=== PATIENT | male | born 1950 | race Caucasian/White ===

== ENCOUNTER 2022-04-05 13:44 | Outpatient (CLI) | payer OTHER, SELFPAY | END 2022-04-05 13:45 | disposition home or self-care (01) | LOC: AMB 04-13 09:37 | PROVIDERS: PCP Surgery; Visit Provider Family Medicine | DX: R10.9 Unspecified abdominal pain (principal) | CPT/HCPCS: A0425; A0427 ==

== ENCOUNTER 2022-04-05 14:18 | Emergency (ER) | payer MEDICARE, SELFPAY ==
[2022-04-05] VITALS (34 sets, daily range): BP systolic 89–140; BP diastolic 45–100; PULSE 60–90; TEMP 36; O2SAT 90–98
--- NOTE | 2022-04-05 14:29 | ED_ITS ---
HPI - General Adult General Time Seen by Provider: 14:30 Date Seen: 04/05/22 Chief complaint: Cardiac Arrest/CPR Stated complaint: Cardiac Time Seen by Provider: 04/05/22 14:28 Source: patient, EMS, RN notes reviewed and old records reviewed Mode of arrival: EMS Limitations: no limitations History of Present Illness HPI narrative: Gilmar is a very pleasant 72-year-old gentleman with a history of hyperlipidemia, hypertension, atrial fibrillation and valve replacement who comes to the emergency room for evaluation after V-tach arrest with cardioversion. Patient had stated to nursing staff here that he was not feeling well last night. This morning that feeling persisted and he decided to walk down to the ER and station at [facility] where he resides. This is an assisted living facility in [place]. He was noted to be pale sweaty and became altered and more unresponsive. 911 was called and upon EMS arrival he was noted to be in a persistent ventricular tachycardia at 200. He was shocked with 100 joules and converted. He immediately was able to talk. He tells me that he did have some nausea and stomach pain this morning but denied any chest pain. He states it was maybe a little hard to breathe but he does not endorse any specific shortness of breath. He denies any cough cold or congestion. Currently he is feeling better but is quite shaky in the emergency room. He takes amlodipine, aspirin daily, atorvastatin, escitalopram, lisinopril, metoprolol and quite type pain. He has been well lately and has not had any illness or fever. Related Data Home Medications Medication Instructions Recorded Confirmed amlodipine 10 mg tablet 10 mg PO DAILY 04/05/22 04/05/22 aspirin 81 mg tablet,delayed 81 mg PO DAILY 04/05/22 04/05/22 release atorvastatin 20 mg tablet 20 mg PO DAILY 04/05/22 04/05/22 escitalopram oxalate 10 mg tablet 10 mg PO DAILY 04/05/22 04/05/22 ibuprofen 200 mg capsule 200 mg PO Q4-6H PRN 04/05/22 04/05/22 lisinopril 10 mg tablet 10 mg PO DAILY 04/05/22 04/05/22 metoprolol succinate 25 mg 25 mg PO DAILY 04/05/22 04/05/22 tablet,extended release 24 hr quetiapine 25 mg tablet 25 mg PO DAILY 04/05/22 04/05/22 Allergies Allergy/AdvReac Type Severity Reaction Status Date / Time No Known Drug Allergies Allergy Verified 04/05/22 14:36 Review of Systems Status of ROS: Reports: 10 or more systems reviewed and unremarkable except as noted in History and below Const: Denies: fever or chills Eyes: Denies: change in vision ENMT: Denies: throat pain or difficulty swallowing Cardio: Reports: shortness of breath with exertion ( Mild and transient); Denies: chest pain, palpitations, swelling of feet/ankles or lightheadedness Resp: Reports: shortness of breath ( Mild and transient); Denies: cough GI: Reports: abdominal pain ( earlier today but now resolved) and nausea ( earlier today but now resolved); Denies: vomiting, diarrhea or difficulty swallowing : Denies: painful urination Neuro: Denies: headache or weakness in extremities PFSH PFSH Social History Smoking Status: Smoker, status unknown Do you use any of these nicotine containing products: Vaping Products Non-prescribed substance use: denies use Exam Narrative: Exam Narrative: patient is alert and oriented. Mentating normally. Makes good eye contact. Face is symmetrical. Neck is supple. No lymphadenopathy. Heart is with a regular rate and rhythm. Lungs are clear. Abdomen soft nontender. No pulsating mass. Lower extremities without edema. Pedal pulses are intact and symmetrical. Const: Vital Signs, click to edit/add: Vital Signs - 24 hr 04/05/22 14:33 04/05/22 14:35 04/05/22 14:34 Temperature 96.8 F L Pulse Rate 90 Pulse Rate [Right] 90 Blood Pressure 130/89 Blood Pressure [Le ft Upper Arm] 130/89 Pulse Oximetry 96 95 96 Oxygen Delivery Me thod Room Air Oxygen Flow Rate 04/05/22 14:35 04/05/22 14:45 04/05/22 14:47 Temperature Pulse Rate 89 86 83 Pulse Rate [Right] Blood Pressure 91/61 Blood Pressure [Le ft Upper Arm] Pulse Oximetry 96 94 94 Oxygen Delivery Me thod Oxygen Flow Rate 04/05/22 15:00 04/05/22 15:02 04/05/22 15:15 Temperature Pulse Rate 82 81 80 Pulse Rate [Right] Blood Pressure 94/45 L Blood Pressure [Le ft Upper Arm] Pulse Oximetry 94 93 93 Oxygen Delivery Me thod Oxygen Flow Rate 04/05/22 15:16 04/05/22 15:30 04/05/22 15:32 Temperature Pulse Rate 80 70 73 Pulse Rate [Right] Blood Pressure 107/58 L 89/51 L Blood Pressure [Le ft Upper Arm] Pulse Oximetry 92 91 92 Oxygen Delivery Me thod Oxygen Flow Rate 04/05/22 15:45 04/05/22 15:46 04/05/22 15:47 Temperature Pulse Rate 69 69 69 Pulse Rate [Right] Blood Pressure 96/84 Blood Pressure [Le ft Upper Arm] Pulse Oximetry 95 97 96 Oxygen Delivery Me thod Oxygen Flow Rate 04/05/22 16:00 04/05/22 16:03 04/05/22 16:15 Temperature Pulse Rate 73 75 72 Pulse Rate [Right] Blood Pressure 113/68 Blood Pressure [Le ft Upper Arm] Pulse Oximetry 97 96 97 Oxygen Delivery Me thod Oxygen Flow Rate 04/05/22 16:16 04/05/22 16:30 04/05/22 16:35 Temperature Pulse Rate 75 60 73 Pulse Rate [Right] Blood Pressure 106/73 Blood Pressure [Le ft Upper Arm] Pulse Oximetry 95 96 96 Oxygen Delivery Me thod Oxygen Flow Rate 04/05/22 16:45 04/05/22 16:46 04/05/22 16:47 Temperature Pulse Rate 69 70 71 Pulse Rate [Right] Blood Pressure 116/66 Blood Pressure [Le ft Upper Arm] Pulse Oximetry 97 96 97 Oxygen Delivery Me thod Oxygen Flow Rate 04/05/22 17:00 04/05/22 17:02 04/05/22 17:15 Temperature Pulse Rate 82 70 69 Pulse Rate [Right] Blood Pressure 114/70 Blood Pressure [Le ft Upper Arm] Pulse Oximetry 98 96 97 Oxygen Delivery Me thod Oxygen Flow Rate 04/05/22 17:16 04/05/22 17:30 04/05/22 17:31 Temperature Pulse Rate 71 77 77 Pulse Rate [Right] Blood Pressure 140/100 H 113/74 Blood Pressure [Le ft Upper Arm] Pulse Oximetry 96 97 96 Oxygen Delivery Me thod Oxygen Flow Rate 04/05/22 17:45 04/05/22 17:47 04/05/22 18:00 Temperature Pulse Rate 71 66 68 Pulse Rate [Right] Blood Pressure 107/64 Blood Pressure [Le ft Upper Arm] Pulse Oximetry 96 96 96 Oxygen Delivery Me thod Oxygen Flow Rate 04/05/22 18:02 04/05/22 16:22 04/05/22 17:00 Temperature Pulse Rate 68 Pulse Rate [Right] Blood Pressure 104/77 Blood Pressure [Le ft Upper Arm] Pulse Oximetry 96 90 96 Oxygen Delivery Me thod Room Air Nasal Cannula Oxygen Flow Rate 2 Course Course Hospital Course: I am able to view the monitor strip from EMS which shows sustained ventricular tachycardia at approximately 200. Patient noted to immediately cardiovert at [address] depression noted in subsequent strip that has now resolved. At this time patient is stable. Will give patient aspirin 324 p.o.. Chest x-ray, EKG, troponin, CBC, comprehensive panel currently ordered. Reevaluation(s) Reevaluation #1: patient has initial negative troponin. He is requesting lemonade but I have asked him to hold off until I have a 2nd negative troponin. Consultations Consultation #1: I had the pleasure of speaking with [facility] as well intense of this. At this time patient is accepted into the ICU at [facility] but will be on a waiting list. In the meantime will keep him in the emergency room, have pacer plans remaining. Will repeat troponin and EKG. Consultation #2: Dr. Johansen, supervisor cabinetmaker from [facility] does call me back. I they are going to make this patient a tele bed given the fact that he is stable. I did inform him the patient's EKG is showing some irritability with occasional PAC and rare PVC. Magnesium pending. Vital Signs Vital signs: Initial Vital Signs Temperature 96.8 F L 04/05/22 14:33 Temperature Source Axillary 04/05/22 14:33 Pulse Rate 90 04/05/22 14:33 Blood Pressure 130/89 04/05/22 14:33 Blood Pressure Mean 102 04/05/22 14:33 Blood Pressure Position Supine 04/05/22 14:33 Pulse Oximetry 96 04/05/22 14:33 Oxygen Delivery Method 04/05/22 14:33 Vital Signs Temperature 96.8 F L 04/05/22 14:33 Pulse Rate 90 04/05/22 14:33 Blood Pressure 130/89 04/05/22 14:33 Pulse Oximetry 96 04/05/22 14:33 Oxygen Delivery Method 04/05/22 14:33 Temperature 96.8 F L 04/05/22 14:33 Pulse Rate 68 04/05/22 18:02 Blood Pressure 104/77 04/05/22 18:02 Pulse Oximetry 96 04/05/22 18:02 Oxygen Delivery Method 04/05/22 17:00 Oxygen Flow Rate 2 04/05/22 17:00 Medical Decision Making MDM Narrative Medical decision making narrative: 1. Ventricular tachycardia arrest -successful cardioversion by EMS. Patient is now alert and oriented. He is in sinus rhythm once again. He did receive aspirin 325 p.o.. Initial troponin 0.0. It 2nd troponin 0.06 in the did per minute range. Plan is to monitor here until a bed is available at [facility]. For recurrent ventricular tachycardia will initiate amiodarone. For right now patient is stable. 2. Chronic renal insufficiency -creatinine today is 2.7. Was only able to find previous value of 2.1 in 2018. 3. History of valve replacement-unknown valve I do not have documentation in regards to this. Not currently on any anticoagulation. 4. Hypertension -controlled 5. Hyperglycemia- no documentation of diabetes. Given the fact that patient was given a shock I think this could explain some elevation of blood sugar but likely not to 344 today. 6. Leukocytosis- no evidence of pneumonia. This likely from demargination with the cardioversion. 7. Disposition-patient was graciously accepted by [facility] Dr. Ibarra. Patient will be going to the [facility] bed. Medical Records Medical records reviewed: Yes I reviewed the patient's medical records Lab Data Lab results reviewed: Yes I reviewed the patient's lab results Labs: Lab Results 04/05/22 04/05/22 04/05/22 Range/Units 14:40 14:40 14:40 WBC 18.69 H (4.50-11.00) K/uL RBC 5.11 (4.30-5.90) m/uL Hgb 14.8 (13.5-17.5) gm/dL Hct 46.5 (37.0-53.0) % MCV 91 (80-100) fL MCH 29 (26-34) pg MCHC 32 (32-36) gm/dL RDW Coeff of Edinson 14.4 (11.5-15.5) % Plt Count 266 (140-440) K/uL Neut % (Auto) 87.9 H (42.0-72.0) % Lymph % (Auto) 9.1 L (20-44) % [place] % (Auto) 2.0 (0.0-11.0) % Eos % (Auto) 0.1 (0.0-7.0) % Baso % (Auto) 0.1 (0.0-3.0) % Neut # (Auto) 16.40 H (1.7-7.0) K/uL Lymph # (Auto) 1.70 (0.90-2.90) K/uL [place] # (Auto) 0.40 (0.00-0.90) K/UL Eos # (Auto) 0.00 (0.00-0.50) K/uL Baso # (Auto) 0.00 (0.00-0.30) K/uL Abs Immat Gran (auto) 0.15 (0.00-0.30) K/uL Imm/Tot Granulo (auto) Not Reportable Sodium 145 (135-149) mmol/L Potassium 4.8 (3.6-5.1) mmol/L Chloride 108 (96-114) mmol/L Carbon Dioxide 12 L (20-32) mmol/L BUN 38 H (7-30) mg/dL Creatinine 2.7 H (0.5-1.5) mg/dL Estimated GFR 24 ml/min Glucose 344 H (60-115) mg/dL Calcium 9.6 (8.4-10.6) mg/dL Magnesium 2.5 (1.5-2.6) mg/dL Total Bilirubin 0.7 (0.1-1.5) mg/dL AST 32 (12-35) U/L ALT 100 H (4-50) U/L Alkaline Phosphatase 111 (40-150) U/L Troponin I (0.01-0.04) ng/mL Total Protein 8.2 (6.0-8.3) g/dL Albumin 4.8 (3.3-5.0) g/dL SARS-CoV-2 (PCR) (Negative) Influenza Type A (PCR) (Negative) Influenza Type B (PCR) (Negative) POC Troponin I 0.02 (0.01-0.04) ng/ml 04/05/22 04/05/22 Range/Units 14:40 16:38 WBC (4.50-11.00) K/uL RBC (4.30-5.90) m/uL Hgb (13.5-17.5) gm/dL Hct (37.0-53.0) % MCV (80-100) fL MCH (26-34) pg MCHC (32-36) gm/dL RDW Coeff of Edinson (11.5-15.5) % Plt Count (140-440) K/uL Neut % (Auto) (42.0-72.0) % Lymph % (Auto) (20-44) % [place] % (Auto) (0.0-11.0) % Eos % (Auto) (0.0-7.0) % Baso % (Auto) (0.0-3.0) % Neut # (Auto) (1.7-7.0) K/uL Lymph # (Auto) (0.90-2.90) K/uL [place] # (Auto) (0.00-0.90) K/UL Eos # (Auto) (0.00-0.50) K/uL Baso # (Auto) (0.00-0.30) K/uL Abs Immat Gran (auto) (0.00-0.30) K/uL Imm/Tot Granulo (auto) Sodium (135-149) mmol/L Potassium (3.6-5.1) mmol/L Chloride (96-114) mmol/L Carbon Dioxide (20-32) mmol/L BUN (7-30) mg/dL Creatinine (0.5-1.5) mg/dL Estimated GFR ml/min Glucose (60-115) mg/dL Calcium (8.4-10.6) mg/dL Magnesium (1.5-2.6) mg/dL Total Bilirubin (0.1-1.5) mg/dL AST (12-35) U/L ALT (4-50) U/L Alkaline Phosphatase (40-150) U/L Troponin I 0.06 H* (0.01-0.04) ng/mL Total Protein (6.0-8.3) g/dL Albumin (3.3-5.0) g/dL SARS-CoV-2 (PCR) Negative SARS-CoV-2 (Negative) Influenza Type A (PCR) Negative PCR FLU A (Negative) Influenza Type B (PCR) Negative PCR FLU B (Negative) POC Troponin I (0.01-0.04) ng/ml Imaging Data Chest x-ray: Attestation: I have reviewed the pertinent imaging results. My impression: Chronic lung markings. Wires in the sternum. I do not see a widened mediastinum. Radiologist's impression: Lungs: Clear lungs. No consolidation. Pleura: No pleural effusion or pneumothorax. Heart and Mediastinum: The cardiomediastinal silhouette is enlarged. The vessels are unremarkable. Bones: Unremarkable. IMPRESSION: No acute cardiopulmonary disease. ECG Data Attestation: I personally reviewed and interpreted this ECG as follows: Prior ECG tracings: available for review Interpretation: EKG by my read shows sinus rhythm at a rate of 93. Flattening of the T-waves noted in the anterior lateral leads. Second EKG by my read shows sinus rhythm. Patient does have rare PVC and now occasional PACs. No significant acute ST or T-wave changes. Discharge Plan Discharge Prescriptions: No Action quetiapine 25 mg tablet 25 mg PO DAILY atorvastatin 20 mg tablet 20 mg PO DAILY aspirin 81 mg tablet,delayed release (DR/EC) 81 mg PO DAILY amlodipine 10 mg tablet 10 mg PO DAILY lisinopril 10 mg tablet 10 mg PO DAILY metoprolol succinate 25 mg tablet extended release 24 hr 25 mg PO DAILY escitalopram oxalate 10 mg tablet 10 mg PO DAILY ibuprofen 200 mg capsule 200 mg PO Q4-6H PRN Rx Instructions: 200mg 1-2 tabs orally every 4-6 hours PRN; Follow Up/Referrals: Bam Robles MD [Primary Care Provider] -
[2022-04-05] MEDS: ASPIRIN 81 MG TAB.CHEW 324 MG PO (14:35)
--- NOTE | 2022-04-05 14:35 | CRLHL7_ITS ---
For Patients: As a result of the Cures Act, medical imaging exams and procedure reports are released immediately into your electronic medical record. You may view this report before your referring provider. If you have questions, please contact your health care provider. INDICATION: Ventricular tachycardia. TECHNIQUE: Chest 1 views. COMPARISON: None. FINDINGS: Lungs: Clear lungs. No consolidation. Pleura: No pleural effusion or pneumothorax. Heart and Mediastinum: The cardiomediastinal silhouette is enlarged. The vessels are unremarkable. Bones: Unremarkable. IMPRESSION: No acute cardiopulmonary disease. Dictated by Nagi Deluna MD @ 04/05/2022 3:28:49 PM (Electronically Signed)
[2022-04-05 15:02] LABS: Basophils Percent Auto 0.1 % (0.0-3.0); Eosinophils Percent Auto 0.1 % (0.0-7.0); Hematocrit 46.5 % (37.0-53.0); Hemoglobin* 14.8 gm/dL (13.5-17.5); Immature Granulocytes Abs Auto 0.15 K/uL (0.00-0.30); Lymphocytes Percent Auto 9.1 % (20-44); Mean Corpuscular HGB Conc 32 gm/dL (32-36); Mean Corpuscular Hemoglobin 29 pg (26-34); Mean Corpuscular Volume 91 fL (80-100); Neutrophils Percent Auto 87.9 % (42.0-72.0); Platelet Count* 266 K/uL (140-440); RDW Coefficient of Variation % 14.4 % (11.5-15.5); Red Blood Count 5.11 m/uL (4.30-5.90); White Blood Count* 18.69 K/uL (4.50-11.00)
[2022-04-05 15:03] LABS: Troponin, Point-of-Care* 0.02 ng/ml (0.01-0.04)
[2022-04-05 15:06] LABS: Slide Review Reflex No
[2022-04-05 15:07] LABS: Albumin* 4.8 g/dL (3.3-5.0); Chloride* 108 mmol/L (96-114); Sodium* 145 mmol/L (135-149)
[2022-04-05 15:08] LABS: Potassium* 4.8 mmol/L (3.6-5.1)
[2022-04-05 15:10] LABS: Alkaline Phosphatase* 111 U/L (40-150); Aspartate Amino Transferase* 32 U/L (12-35); Bilirubin Total* 0.7 mg/dL (0.1-1.5); Blood Urea Nitrogen* 38 mg/dL (7-30); Carbon Dioxide* 12 mmol/L (20-32); Creatinine* 2.7 mg/dL (0.5-1.5); Estimated Glomerular Filt Rate 24 ml/min; Glucose* 344 mg/dL (60-115); Total Protein* 8.2 g/dL (6.0-8.3)
[2022-04-05 15:11] LABS: Calcium* 9.6 mg/dL (8.4-10.6)
[2022-04-05 15:23] LABS: PCR FLU A Negative PCR FLU A (Negative); PCR FLU B Negative PCR FLU B (Negative)
[2022-04-05 15:24] LABS: SARS PCR* Negative SARS-CoV-2 (Negative)
[2022-04-05 15:44] LABS: Alanine Aminotransferase* 100 U/L (4-50)
[2022-04-05 17:02] LABS: Magnesium* 2.5 mg/dL (1.5-2.6)
--- NOTE | 2022-04-05 17:09 | ED.NURSE ---
Spoke with , Shanika and gave update on patient and helped patient to use phone.
[2022-04-05 17:39] LABS: Troponin I* 0.06 ng/mL (0.01-0.04)
--- NOTE | 2022-04-05 19:18 | ED.NURSE ---
RN to RN report given. Patient will transfer [facility] via ems. Sister was notified as well as Julito Rhodes.
== END 2022-04-05 19:25 | disposition short-term general hospital (02) ==
LOC: ED 15:00
PROVIDERS: Emergency Provider Family Medicine; PCP Surgery
DX: I46.9 Cardiac arrest, cause unspecified (principal); I48.91 Unspecified atrial fibrillation; R73.9 Hyperglycemia, unspecified; I12.9 Hypertensive chronic kidney disease with stage 1 through stage 4 chronic kidney disease, or unspecified chronic kidney disease; D72.829 Elevated white blood cell count, unspecified; N18.9 Chronic kidney disease, unspecified; E78.5 Hyperlipidemia, unspecified; F17.290 Nicotine dependence, other tobacco product, uncomplicated; Z95.2 Presence of prosthetic heart valve; Z79.899 Other long term (current) drug therapy; Z79.82 Long term (current) use of aspirin; Z20.822 Contact with and (suspected) exposure to COVID-19; I47.20 Ventricular tachycardia, unspecified
CPT/HCPCS: 36415; 71045; 80053; 83735; 84484; 85025; 87631; 93005; 94761; 99285; A9270

== ENCOUNTER 2022-04-05 19:09 | Outpatient (CLI) | payer OTHER, SELFPAY | END 2022-04-05 19:10 | disposition home or self-care (01) | LOC: AMB 04-26 10:57 | PROVIDERS: PCP Surgery; Visit Provider Family Medicine | DX: I49.9 Cardiac arrhythmia, unspecified (principal) | CPT/HCPCS: A0425; A0426 ==

== ENCOUNTER 2022-04-11 08:28 | Outpatient (CLI) | payer OTHER, SELFPAY | END 2022-04-11 08:29 | disposition home or self-care (01) | LOC: AMB 05-09 06:22 | PROVIDERS: PCP Surgery; Visit Provider Family Medicine | DX: I49.9 Cardiac arrhythmia, unspecified (principal) | CPT/HCPCS: A0425; A0427 ==

== ENCOUNTER 2022-04-11 08:54 | Emergency (ER) | payer OTHER, SELFPAY ==
[2022-04-11] VITALS (39 sets, daily range): BP systolic 93–158; BP diastolic 53–115; PULSE 62–168; RESP 14–20; TEMP 37; O2SAT 94–100; BMI 27.4
--- NOTE | 2022-04-11 08:58 | CRLHL7_ITS ---
For Patients: As a result of the Century Cures Act, medical imaging exams and procedure reports are released immediately into your electronic medical record. You may view this report before your referring provider. If you have questions, please contact your health care provider. INDICATION: Chest pain. TECHNIQUE: AP portable chest. COMPARISON: April 05, 2022. FINDINGS: New left-sided pacemaker/ICD with its lead tips in the right atrium and right ventricle. No definite pneumothorax. Sternotomy. Overall heart size is toward the upper limit of normal. Clear lungs. No evidence for congestive heart failure or active pneumonia. IMPRESSION: New left-sided pacemaker/ICD. No acute cardiopulmonary process identified. No pneumothorax. Dictated by Naveen Moreno MD @ 04/11/2022 9:57:50 AM (Electronically Signed)
--- NOTE | 2022-04-11 09:12 | ED.NURSE ---
Spoke with pt's sister Shanika . She is POA for pt. Provided with an update.
[2022-04-11 09:27] LABS: Basophils Percent Auto 0.2 % (0.0-3.0); Eosinophils Percent Auto 0.8 % (0.0-7.0); Hematocrit 38.3 % (37.0-53.0); Hemoglobin* 12.5 gm/dL (13.5-17.5); Immature Granulocytes Pct Auto 0.1 %; Lymphocytes Percent Auto 9.7 % (20-44); Mean Corpuscular HGB Conc 33 gm/dL (32-36); Mean Corpuscular Hemoglobin 29 pg (26-34); Mean Corpuscular Volume 89 fL (80-100); Monocytes Percent Auto 9.7 % (0.0-11.0); Neutrophils Percent Auto 79.5 % (42.0-72.0); Platelet Count* 169 K/uL (140-440); RDW Coefficient of Variation % 14.2 % (11.5-15.5); Red Blood Count 4.33 m/uL (4.30-5.90); White Blood Count* 14.94 K/uL (4.50-11.00)
[2022-04-11] MEDS: 0.9 % SODIUM CHLORIDE 1000 ml 1,000 ML IV (09:28)
[2022-04-11 09:29] LABS: Troponin, Point-of-Care* 0.02 ng/ml (0.01-0.04)
[2022-04-11 09:29] LABS: Slide Review Reflex No
[2022-04-11 09:38] LABS: Chloride* 111 mmol/L (96-114); Sodium* 141 mmol/L (135-149)
[2022-04-11 09:39] LABS: Potassium* 4.4 mmol/L (3.6-5.1)
[2022-04-11 09:41] LABS: Carbon Dioxide* 16 mmol/L (20-32); Creatinine* 1.5 mg/dL (0.5-1.5); Est. Creatinine Clearance* 41.62; Estimated Glomerular Filt Rate 49 ml/min
[2022-04-11 09:42] LABS: Blood Urea Nitrogen* 28 mg/dL (7-30); Calcium* 8.4 mg/dL (8.4-10.6); Glucose* 126 mg/dL (60-115); Magnesium* 2.2 mg/dL (1.5-2.6)
[2022-04-11 09:43] LABS: INR 1.09 (0.91-1.10); Prothrombin Time 14.8 Seconds
--- NOTE | 2022-04-11 09:43 | ED.NURSE ---
Spoke with pt's sister, Shanika again. Provided update about conscious sedation and cardioversion procedure to be done shortly.
[2022-04-11 09:44] LABS: Partial Thromboplastin Time* 31 Seconds (23-33)
[2022-04-11 09:46] LABS: D Dimer Quantitative* 3.32 ug/ml (0.00-0.50)
[2022-04-11 09:50] LABS: NT Pro B Type NatriureticPept* 7040 PG/mL (0-125)
--- NOTE | 2022-04-11 09:53 | ED.NURSE ---
Cardioversion done at 100J, pt converted rhythm, HR now 83. Pt tolerated procedure well.
--- NOTE | 2022-04-11 09:53 | W.ANESCHARGE ---
Anesthesia Charges Start Date/Time Anesthesia Start Date: 04/11/22 Anesthesia Start Time: 09:40 Stop Date/Time Anesthesia Stop Date: 04/11/22 Anesthesia Stop Time: 09:52 Summary Emergency: Yes Extremes of Age: Over 70-CPT 20816
--- NOTE | 2022-04-11 09:59 | ED_ITS ---
HPI - Arrhythmia/Palpitations General Date Seen: 04/11/22 Chief Complaint: Arrhythmia/Palpitations Stated Complaint: Heart issue Time Seen by Provider: 04/11/22 08:57 Source: patient, EMS and old records reviewed Mode of arrival: EMS Limitations: no limitations History of Present Illness HPI narrative: Is a 72-year-old gentleman who presents from [facility], at approximately 8:00 a.m. this morning he went to move his lazy Boy chair, got nauseous, felt diaphoretic, staff attended him, found his heart rate to be elevated, EMS was activated does he has a history of a recent pacemaker placement a week ago. He was brought to the emergency room, he is speaking normally to me, feels pretty good now, denies any chest pain shortness of breath or anything else, his rhythm on the monitor is 168 regular, wide-based, consistent with either ventricular tachycardia or left bundle-branch block with aberration. Recent pacemaker placement at [facility], medications are updated. Related Data Home Medications Medication Instructions Recorded Confirmed amlodipine 10 mg tablet 10 mg PO DAILY 04/05/22 04/05/22 aspirin 81 mg tablet,delayed 81 mg PO DAILY 04/05/22 04/05/22 release atorvastatin 20 mg tablet 20 mg PO DAILY 04/05/22 04/05/22 escitalopram oxalate 10 mg tablet 10 mg PO DAILY 04/05/22 04/05/22 ibuprofen 200 mg capsule 200 mg PO Q4-6H PRN 04/05/22 04/05/22 lisinopril 10 mg tablet 10 mg PO DAILY 04/05/22 04/05/22 metoprolol succinate 25 mg 25 mg PO DAILY 04/05/22 04/05/22 tablet,extended release 24 hr quetiapine 25 mg tablet 25 mg PO DAILY 04/05/22 04/05/22 Previous Rx's Medication Instructions Recorded sotalol 120 mg tablet 120 mg PO BID #60 tabs 04/11/22 Allergies Allergy/AdvReac Type Severity Reaction Status Date / Time No Known Drug Allergies Allergy Verified 04/05/22 14:36 Review of Systems Status of ROS: Reports: 10 or more systems reviewed and unremarkable except as noted in History and below PFSH PFSH Social History Smoking Status: Smoker, status unknown Do you use any of these nicotine containing products: Vaping Products How often do you have a drink containing alcohol: never AUDIT-C Alcohol total score: 0 Non-prescribed substance use: denies use Exam Narrative: Exam Narrative: He has attended to and roommate, he is alert oriented, no apparent distress, pupils equal round reactive to light, TMs and oropharynx are normal, neck is supple, JVP is flat, chest is good air entry year bilaterally with no wheezing crackles noted, easy respirations, he has patch on the left side of his chest consistent with a recent pacemaker placement, there is no redness around it suggesting cellulitis, or tenderness. Heart sounds show a regular rhythm, at approximately 160 beats per minute, no murmurs are noted. His abdomen is soft and obese there is no guarding no tenderness no organomegaly noted, bowel sounds are normal, extremities are all normally moves all extremities independently and well, with symmetrical power in his upper lower extremities and right verses left is normal. He appears to be in a wide-based rapid rate on the monitor. Const: Vital Signs, click to edit/add: Vital Signs - 24 hr 04/11/22 09:00 04/11/22 08:59 04/11/22 09:00 Temperature 98.6 F Pulse Rate 167 H 167 H Pulse Rate [Left F emoral] 168 H Respiratory Rate 18 Blood Pressure Blood Pressure [Le ft Upper Arm] 112/86 Pulse Oximetry 95 95 95 Oxygen Delivery Me thod Room Air 04/11/22 09:02 04/11/22 09:10 04/11/22 09:12 Temperature Pulse Rate 168 H 167 H 168 H Pulse Rate [Left F emoral] Respiratory Rate Blood Pressure 112/86 116/92 H Blood Pressure [Le ft Upper Arm] Pulse Oximetry 95 95 95 Oxygen Delivery Me thod 04/11/22 09:20 04/11/22 09:22 04/11/22 09:30 Temperature Pulse Rate 167 H 167 H 168 H Pulse Rate [Left F emoral] Respiratory Rate Blood Pressure 114/92 H Blood Pressure [Le ft Upper Arm] Pulse Oximetry 97 95 95 Oxygen Delivery Me thod 04/11/22 09:32 04/11/22 09:40 04/11/22 09:41 Temperature Pulse Rate 167 H 168 H 167 H Pulse Rate [Left F emoral] Respiratory Rate Blood Pressure 111/88 129/100 H Blood Pressure [Le ft Upper Arm] Pulse Oximetry 95 95 95 Oxygen Delivery Me thod 04/11/22 09:44 04/11/22 09:48 04/11/22 09:50 Temperature Pulse Rate 167 H 104 H 89 Pulse Rate [Left F emoral] Respiratory Rate 20 17 Blood Pressure 132/85 93/53 L Blood Pressure [Le ft Upper Arm] Pulse Oximetry 94 98 99 Oxygen Delivery Me thod 04/11/22 09:51 04/11/22 09:52 04/11/22 09:57 Temperature Pulse Rate 94 89 82 Pulse Rate [Left F emoral] Respiratory Rate 18 18 17 Blood Pressure 95/55 L 120/67 Blood Pressure [Le ft Upper Arm] Pulse Oximetry 99 99 99 Oxygen Delivery Me thod 04/11/22 09:58 04/11/22 10:00 04/11/22 10:02 Temperature Pulse Rate 85 84 83 Pulse Rate [Left F emoral] Respiratory Rate 17 16 16 Blood Pressure 132/76 Blood Pressure [Le ft Upper Arm] Pulse Oximetry 100 100 100 Oxygen Delivery Me thod 04/11/22 10:07 04/11/22 10:10 04/11/22 10:16 Temperature Pulse Rate 79 83 88 Pulse Rate [Left F emoral] Respiratory Rate 18 20 20 Blood Pressure 134/80 152/115 H Blood Pressure [Le ft Upper Arm] Pulse Oximetry 100 100 99 Oxygen Delivery Me thod 04/11/22 10:30 04/11/22 10:36 04/11/22 10:37 Temperature Pulse Rate 86 84 87 Pulse Rate [Left F emoral] Respiratory Rate 17 17 16 Blood Pressure 139/77 Blood Pressure [Le ft Upper Arm] Pulse Oximetry 99 99 99 Oxygen Delivery Me thod 04/11/22 10:40 04/11/22 10:50 04/11/22 11:00 Temperature Pulse Rate 89 82 78 Pulse Rate [Left F emoral] Respiratory Rate 20 16 15 Blood Pressure Blood Pressure [Le ft Upper Arm] Pulse Oximetry 99 99 99 Oxygen Delivery Me thod 04/11/22 11:02 04/11/22 11:10 04/11/22 11:20 Temperature Pulse Rate 78 75 70 Pulse Rate [Left F emoral] Respiratory Rate 15 16 14 Blood Pressure 134/79 Blood Pressure [Le ft Upper Arm] Pulse Oximetry 99 99 99 Oxygen Delivery Me thod 04/11/22 11:33 04/11/22 11:35 04/11/22 11:40 Temperature Pulse Rate 83 70 69 Pulse Rate [Left F emoral] Respiratory Rate Blood Pressure 158/83 H Blood Pressure [Le ft Upper Arm] Pulse Oximetry 95 96 96 Oxygen Delivery Me thod 04/11/22 11:50 04/11/22 12:00 04/11/22 12:02 Temperature Pulse Rate 64 64 63 Pulse Rate [Left F emoral] Respiratory Rate Blood Pressure 137/72 Blood Pressure [Le ft Upper Arm] Pulse Oximetry 95 96 95 Oxygen Delivery Me thod 04/11/22 12:10 Temperature Pulse Rate 62 Pulse Rate [Left F emoral] Respiratory Rate Blood Pressure Blood Pressure [Le ft Upper Arm] Pulse Oximetry 95 Oxygen Delivery Me thod Documenting provider has reviewed patient's vital signs: yes Course Course Hospital Course: I spoke to [facility] Dr. Uday Lozano, he reviewed the EKG also, agreed with me that this is either ventricular tachycardia or possibly left bundle-branch block with aberration your regards it is currently stable, but would recommend electricity, defibrillation. He also after consulting with his rhythm colleagues, they suggested sotalol 120 mg p.o. b.i.d., and for him to be seen by [facility] on Sunday. They will change his defibrillator which is currently set at 180, I discussed this with the patient, he is agreeable to cardioversion, along with sedation, he is vehemently no intubation, and no excessive/CPR if he would needed. I agreed to him that I would not do this, other than maybe a little bit of oral bagging if he needs oxygen. Discussion of the risks benefits and side effects of the diff fibrillation including injury are discussed in detail with the patient he accepts these would like to proceed. Anesthesia was in attendance, for airway support. We used propofol, and 100 joules this resulted in good cardioversion, he is now in narrow complex heart rhythm at 90 beats per minute, with occasional multifocal PVCs. Per cardiology's guidelines he will be watch for a couple hours, if he does well he can be discharged at that point. Reevaluation(s) Reevaluation #1: Patient has done well he remained in narrow complex rhythm, with a rate of 62, there is no further need for intervention, we were able to set him up with the medication, and [facility] will contact him with follow-up. He will return if ongoing signs and symptoms. Time: 12:47 Vital Signs Vital signs: Initial Vital Signs Pulse Rate 167 H 04/11/22 08:59 Pulse Oximetry 95 04/11/22 08:59 Vital Signs Pulse Rate 167 H 04/11/22 08:59 Pulse Oximetry 95 04/11/22 08:59 Temperature 98.6 F 04/11/22 09:00 Pulse Rate 62 04/11/22 12:10 Respiratory Rate 14 04/11/22 11:20 Blood Pressure 137/72 04/11/22 12:02 Pulse Oximetry 95 04/11/22 12:10 Oxygen Delivery Method 04/11/22 09:00 MDM - Arrhythmia/Palpitations MDM Narrative Medical decision making narrative: Differential diagnosis includes but is not limited to psychosocial stress, thyroid abnormalities, CHF, SVT, atrial fibrillation, ventricular tachycardia and ventricular fibrillation. This includes the life-threatening complications of heart failure, V-tach, and VFib Medical Records Attestation: I reviewed the patient's medical records. Lab Data Attestation: I reviewed the patient's lab results. Labs: Lab Results 04/11/22 04/11/22 04/11/22 Range/Units 08:58 08:58 09:12 WBC 14.94 H (4.50-11.00) K/uL RBC 4.33 (4.30-5.90) m/uL Hgb 12.5 L (13.5-17.5) gm/dL Hct 38.3 (37.0-53.0) % MCV 89 (80-100) fL MCH 29 (26-34) pg MCHC 33 (32-36) gm/dL RDW Coeff of Edinson 14.2 (11.5-15.5) % Plt Count 169 (140-440) K/uL Neut % (Auto) 79.5 H (42.0-72.0) % Lymph % (Auto) 9.7 L (20-44) % [place] % (Auto) 9.7 (0.0-11.0) % Eos % (Auto) 0.8 (0.0-7.0) % Baso % (Auto) 0.2 (0.0-3.0) % Neut # (Auto) 11.90 H (1.7-7.0) K/uL Lymph # (Auto) 1.40 (0.90-2.90) K/uL [place] # (Auto) 1.40 H (0.00-0.90) K/UL Eos # (Auto) 0.10 (0.00-0.50) K/uL Baso # (Auto) 0.00 (0.00-0.30) K/uL Abs Immat Gran (auto) 0.00 (0.00-0.30) K/uL Imm/Tot Granulo (auto) 0.1 % INR (0.91-1.10) APTT (23-33) Seconds D-Dimer Quant (PE/DVT) (0.00-0.50) ug/ml Sodium (135-149) mmol/L Potassium (3.6-5.1) mmol/L Chloride (96-114) mmol/L Carbon Dioxide (20-32) mmol/L BUN (7-30) mg/dL Creatinine (0.5-1.5) mg/dL Estimated Creat Clear Estimated GFR ml/min Glucose (60-115) mg/dL Calcium (8.4-10.6) mg/dL Magnesium (1.5-2.6) mg/dL NT-Pro-B Natriuret Pep (0-125) PG/mL SARS-CoV-2 (PCR) Negative SARS-CoV-2 (Negative) Influenza Type A (PCR) Negative PCR FLU A (Negative) Influenza Type B (PCR) Negative PCR FLU B (Negative) RSV (PCR) Negative PCR RSV (Negative) POC Troponin I 0.02 (0.01-0.04) ng/ml 04/11/22 04/11/22 Range/Units 09:12 09:12 WBC (4.50-11.00) K/uL RBC (4.30-5.90) m/uL Hgb (13.5-17.5) gm/dL Hct (37.0-53.0) % MCV (80-100) fL MCH (26-34) pg MCHC (32-36) gm/dL RDW Coeff of Edinson (11.5-15.5) % Plt Count (140-440) K/uL Neut % (Auto) (42.0-72.0) % Lymph % (Auto) (20-44) % [place] % (Auto) (0.0-11.0) % Eos % (Auto) (0.0-7.0) % Baso % (Auto) (0.0-3.0) % Neut # (Auto) (1.7-7.0) K/uL Lymph # (Auto) (0.90-2.90) K/uL [place] # (Auto) (0.00-0.90) K/UL Eos # (Auto) (0.00-0.50) K/uL Baso # (Auto) (0.00-0.30) K/uL Abs Immat Gran (auto) (0.00-0.30) K/uL Imm/Tot Granulo (auto) % INR 1.09 (0.91-1.10) APTT 31 (23-33) Seconds D-Dimer Quant (PE/DVT) 3.32 H (0.00-0.50) ug/ml Sodium 141 (135-149) mmol/L Potassium 4.4 (3.6-5.1) mmol/L Chloride 111 (96-114) mmol/L Carbon Dioxide 16 L (20-32) mmol/L BUN 28 (7-30) mg/dL Creatinine 1.5 (0.5-1.5) mg/dL Estimated Creat Clear 41.62 Estimated GFR 49 ml/min Glucose 126 H (60-115) mg/dL Calcium 8.4 (8.4-10.6) mg/dL Magnesium 2.2 (1.5-2.6) mg/dL NT-Pro-B Natriuret Pep 7040 H (0-125) PG/mL SARS-CoV-2 (PCR) (Negative) Influenza Type A (PCR) (Negative) Influenza Type B (PCR) (Negative) RSV (PCR) (Negative) POC Troponin I (0.01-0.04) ng/ml Imaging Data Chest x-ray: Attestation: I have reviewed the pertinent imaging results. My impression: Defibrillator placement, large cardiac silhouette, Radiologist's impression: Patient: Gilmar Porras MR#: [id number] : 1950 Acct:[id number] Loc: ED Service Date: 04/11/[address]: Ordering Physician: Merrick White M.D. Date of Service: 04/11/22 Procedure(s): XR chest 1V portable Accession Number(s): [id number] cc: Bam Robles M.D.; Merrick White M.D.~ For Patients:? As a result of the Cures Act, medical imaging exams and procedure reports are released immediately into your electronic medical record.? You may view this report before your referring provider.? If you have questions, please contact your health care provider. INDICATION: Chest pain. TECHNIQUE: AP portable chest. COMPARISON: April 05, 2022. FINDINGS: New left-sided pacemaker/ICD with its lead tips in the right atrium and right ventricle. No definite pneumothorax. Sternotomy. Overall heart size is toward the upper limit of normal. Clear lungs. No evidence for congestive heart failure or active pneumonia. IMPRESSION: New left-sided pacemaker/ICD. No acute cardiopulmonary process identified. No pneumothorax. Dictated by Naveen Moreno MD @ 04/11/2022 9:57:50 AM (Electronically Signed) ECG Data Attestation: I personally reviewed and interpreted this ECG as follows: ECG interpretation date: 04/11/22 Prior ECG tracings: available for review Interpretation: Wide QRS tachycardia, could be ventricular tachycardia, with the ventricular rate of 167, QRS is 130, QT 330, Pacemaker function: abnormal sensing function Discharge Plan Discharge Clinical Impression: Ventricular tachycardia Patient Disposition: Home, Self-Care Condition: Improved Instructions: Implantable Cardioverter Defibrillator (DC), Tachycardia (ED), Cardiac Ablation (DC), Electrophysiology Study (DC) Additional Instructions: As I discussed with Cardiology, we will send you home at this point on the new medication twice daily, they will contact you and schedule follow-up appointment for Sunday with the shank taper Dr. Lozano. Return here if ongoing signs and symptoms, or worsening condition. Just confirm that they can get the prescription so he can take tonight. Prescriptions: New sotalol 120 mg tablet 120 mg PO BID Qty: 60 2RF Rx Instructions: this is for Ventricular tachycardia No Action quetiapine 25 mg tablet 25 mg PO DAILY atorvastatin 20 mg tablet 20 mg PO DAILY aspirin 81 mg tablet,delayed release (DR/EC) 81 mg PO DAILY amlodipine 10 mg tablet 10 mg PO DAILY lisinopril 10 mg tablet 10 mg PO DAILY metoprolol succinate 25 mg tablet extended release 24 hr 25 mg PO DAILY escitalopram oxalate 10 mg tablet 10 mg PO DAILY ibuprofen 200 mg capsule 200 mg PO Q4-6H PRN Rx Instructions: 200mg 1-2 tabs orally every 4-6 hours PRN; Follow Up/Referrals: Bam Robles MD [Primary Care Provider] - Stand Alone Forms: FX Aligned Info Instructions
[2022-04-11] MEDS: SOTALOL HCL 120 MG TABLET PO (10:31)
[2022-04-11 10:40] LABS: PCR FLU A Negative PCR FLU A (Negative); PCR FLU B Negative PCR FLU B (Negative); PCR RSV Negative PCR RSV (Negative)
[2022-04-11 10:41] LABS: SARS PCR* Negative SARS-CoV-2 (Negative)
--- NOTE | 2022-04-11 11:44 | ED.NURSE ---
Pt up to bathroom. Ambulatory with assist. Tolerating well.
== END 2022-04-11 12:26 | disposition home or self-care (01) ==
PROVIDERS: Emergency Provider Family Medicine; PCP Surgery
DX: I47.20 Ventricular tachycardia, unspecified (principal)
CPT/HCPCS: 00410; 36415; 71045; 80048; 83735; 83880; 85025; 85379; 85610; 85730; 87502; 87634; 87635; 92960; 93005; 96360; 99100; 99140; 99285; 99291; A9270; J7030

== ENCOUNTER 2023-09-19 17:35 | Outpatient (CLI) | payer OTHER, SELFPAY | END 2023-09-19 17:36 | disposition home or self-care (01) | LOC: AMB 09-22 15:03 | PROVIDERS: PCP Surgery; Visit Provider Family Medicine | DX: R07.89 Other chest pain (principal) | CPT/HCPCS: A0425; A0427 ==

== ENCOUNTER 2023-09-19 17:58 | Observation (INO) | payer OTHER, SELFPAY ==
[2023-09-19] VITALS (23 sets, daily range): BP systolic 110–116; BP diastolic 62–64; PULSE 49–71; RESP 16–20; TEMP 36.7; O2SAT 89–96; BMI 25.8
--- NOTE | 2023-09-19 18:03 | ED.GENADULT ---
HPI - General Adult General Chief complaint: Nausea/Vomiting Stated complaint: Chest pain Time Seen by Provider: 09/19/23 18:03 History of Present Illness HPI narrative: 73-year-old man brought by EMS activated [facility] in route due to EKG changes. Looking at EMS rhythm strips -- rhythm 7 minutes after the 1st changes to tachycardia wide complex. This prompted change by EMS in status. Has received 324 mg of aspirin. Alden offers limited information during interview. He is noted to be diaphoretic. He says he suddenly was feeling sweaty and nauseated. I believe did vomit. Denies chest pain. Apparently does have a history of cardiac arrest. Unclear whether not had myocardial infarction otherwise. Reports a valve replacement and a pacemaker. Is not having abdominal pain. Nausea is improving. Was in usual state of health earlier today. Has not had fever or cough or cold symptoms. No known illness exposures. Denies a history of heart failure POLST reviewed indicating DNR Clarified events later with arts and humanities council director at residential facility. Apparently was called due to sudden onset of diaphoresis and retching. Was not actually observed to vomit. More questioning of Mr. Porras later reveals that he did not feel any pulse of chest pain consistent with what I understand later is an ICD that has been placed. Related Data Home Medications Medication Instructions Recorded Confirmed amlodipine 10 mg tablet 10 mg PO DAILY 04/05/22 09/19/23 aspirin 81 mg tablet,delayed 81 mg PO DAILY 04/05/22 09/20/23 release ibuprofen 200 mg capsule 200 mg PO Q4-6H PRN 04/05/22 09/20/23 lisinopril 10 mg tablet 10 mg PO DAILY 04/05/22 09/19/23 metoprolol succinate 25 mg 25 mg PO DAILY 04/05/22 09/19/23 tablet,extended release 24 hr quetiapine 25 mg tablet 25 mg PO DAILY 04/05/22 04/05/22 atorvastatin 10 mg tablet 10 mg PO DAILY 09/19/23 09/19/23 doxazosin 2 mg tablet 2 mg PO DAILY 09/19/23 09/19/23 hydroxyzine HCl 50 mg tablet 50 mg PO QPM 09/19/23 09/19/23 sennosides 8.6 mg-docusate sodium PO 09/19/23 50 mg tablet (Stimulant Laxative Plus) Previous Rx's Medication Instructions Recorded sotalol 120 mg tablet 120 mg PO BID #60 tabs 04/11/22 Allergies Allergy/AdvReac Type Severity Reaction Status Date / Time No Known Drug Allergies Allergy Verified 04/05/22 14:36 Review of Systems Status of ROS: Reports: 6 or more systems reviewed and unremarkable except as noted in History and below [facility] Medical History (Updated 09/20/23 @ 11:57 by Joann Jacob PA-C) Heart failure with preserved ejection fraction ?I50.30 - Unspecified diastolic (congestive) heart failure (ICD-10) Hyperlipidemia ?E78.5 - Hyperlipidemia, unspecified (ICD-10) Chronic kidney disease, stage 3 ?N18.30 - Chronic kidney disease, stage 3 unspecified (ICD-10) Hypertension ?I10 - Essential (primary) hypertension (ICD-10) Edentulous ?K08.109 - Complete loss of teeth, unspecified cause, unspecified class (ICD-10) Atrial fibrillation ?I48.91 - Unspecified atrial fibrillation (ICD-10) Hemorrhagic stroke ?I61.9 - Nontraumatic intracerebral hemorrhage, unspecified (ICD-10) POLST (Physician Orders for Life-Sustaining Treatment) ?Z78.9 - Other specified health status (ICD-10) Surgical History (Updated 09/19/23 @ 22:27 by Adrien Stiles MD) H/O colonoscopy ?Z98.890 - Other specified postprocedural states (ICD-10) History of mitral valve repair ?Z98.890 - Other specified postprocedural states (ICD-10) H/O maze procedure ?Z98.890 - Other specified postprocedural states (ICD-10) Family History (Updated 09/19/23 @ 22:27 by Adrien Stiles MD) Mother Cardiovascular disease Father Cardiovascular disease Brother High blood pressure Social History (Updated 09/19/23 @ 22:30 by Adrien Stiles MD) Narrative: Patient lives at [facility]. He does not smoke. He does not drink alcohol. His primary contact is his sister, Shanika Porras, of [place]. [phone]. Code status is DNR and DNI. This includes a request for no external electrical shock with V-tach if his implanted defibrillator does not resolve his tachy dysrhythmia. What is your current living situation?: I presently have a place to live Problems where you live: no known problems Problems where you live details: na In the past 12 months, utilities in danger of being shut off: no In past 12 months, lack of transportation kept you from medical appts, meetings, work, or getting things needed for daily living: no In the past 12 mos, have been you worried that your food would run out before you had money to buy more?: never true In the past 12 mos, the food you bought just didn't last and you didn't have money to buy more?: never true Highest level of school completed/degree received: 12th grade, no diploma Smoking Status: Smoker, status unknown Do you use any of these nicotine containing products: Vaping Products How often do you have a drink containing alcohol: never AUDIT-C Alcohol total score: 0 Non-prescribed substance use: denies use Caffeine: Yes (occasional soda) How often does anyone, including family, friends and others, physically hurt you: never How often does anyone, including family, friends and others, insult or talk down to you: never How often does anyone, including family, friends and others, threaten you with harm: never How often does anyone, including family, friends and others, scream or curse at you: never service: Yes Exam Narrative: Exam Narrative: Is pleasant. Holding emesis bag. Fully alert though appears little tired. There is some rhinorrhea particularly from the right nostril. Lungs appear to be clear. Heart is in a regular rate and rhythm at this time with ectopic beat. Otherwise distant. Abdomen is protuberant soft nontender. Well-healing surgical scar at the left chest and swelling consistent with pacemaker as well as midline well-healed surgical scar. Extremities are without edema. Is well-perfused. Skin otherwise is diaphoretic particularly over head and neck. Cranial nerves 2-12 intact Const: Vital Signs, click to edit/add: Vital Signs - 24 hr 09/19/23 18:06 09/19/23 18:07 09/19/23 18:16 Temperature 98.0 F Pulse Rate 60 Pulse Rate [Pulse Oximeter] 67 Respiratory Rate 16 Blood Pressure 110/64 Blood Pressure [Le ft Upper Arm] 110/64 Pulse Oximetry 95 94 Oxygen Delivery Me thod Room Air 09/19/23 18:36 09/19/23 18:45 09/19/23 19:05 Temperature Pulse Rate 60 60 60 Pulse Rate [Pulse Oximeter] Respiratory Rate Blood Pressure Blood Pressure [Le ft Upper Arm] Pulse Oximetry 96 92 93 Oxygen Delivery Wa thod 09/19/23 19:15 09/19/23 19:30 09/19/23 19:34 Temperature Pulse Rate 69 59 L 60 Pulse Rate [Pulse Oximeter] Respiratory Rate Blood Pressure Blood Pressure [Le ft Upper Arm] Pulse Oximetry 94 92 94 Oxygen Delivery Wa thod 09/19/23 19:45 09/19/23 20:00 09/19/23 20:15 Temperature Pulse Rate 63 49 L 60 Pulse Rate [Pulse Oximeter] Respiratory Rate Blood Pressure Blood Pressure [Le ft Upper Arm] Pulse Oximetry 94 94 94 Oxygen Delivery Wa thod 09/19/23 20:30 09/19/23 20:34 09/19/23 20:45 Temperature Pulse Rate 71 62 60 Pulse Rate [Pulse Oximeter] Respiratory Rate Blood Pressure Blood Pressure [Le ft Upper Arm] Pulse Oximetry 95 94 94 Oxygen Delivery Wa thod 09/19/23 21:00 09/19/23 21:04 09/19/23 21:15 Temperature Pulse Rate 63 64 71 Pulse Rate [Pulse Oximeter] Respiratory Rate Blood Pressure Blood Pressure [Le ft Upper Arm] Pulse Oximetry 94 94 95 Oxygen Delivery Wa thod 09/19/23 21:30 09/19/23 21:34 09/19/23 21:45 Temperature Pulse Rate 68 69 66 Pulse Rate [Pulse Oximeter] Respiratory Rate Blood Pressure Blood Pressure [Le ft Upper Arm] Pulse Oximetry 94 95 90 [facility] pressure via EMS noted to be 130/80 Documenting provider has reviewed patient's vital signs: yes Course Vital Signs Vital signs: Initial Vital Signs Blood Pressure 110/64 09/19/23 18:06 Blood Pressure Mean 79 09/19/23 18:06 Vital Signs Blood Pressure 110/64 09/19/23 18:06 Temperature 97.8 F 09/20/23 11:00 Pulse Rate 78 09/20/23 11:00 Respiratory Rate 16 09/20/23 11:00 Blood Pressure 107/84 09/20/23 11:00 Pulse Oximetry 99 09/20/23 11:00 Oxygen Delivery Method Room Air 09/20/23 11:00 Medications Administered Medications: Discontinued Medications Generic Name Dose Route Start Last Admin Trade Name Richard PRN Reason Stop Dose Admin Amlodipine Besylate 10 mg 09/20/23 09:00 09/20/23 09:31 Amlodipine 10 Mg Tablet PO 10 mg DAILY SHOBHA Administration Aspirin 81 mg 09/20/23 09:00 09/20/23 09:31 Aspirin 81 Mg Tablet Ec PO 81 mg DAILY SHOBHA Administration Atorvastatin Calcium 10 mg 09/20/23 09:00 09/20/23 09:32 Atorvastatin 10 Mg Tablet PO 10 mg DAILY SHOBHA Administration Doxazosin Mesylate 2 mg 09/20/23 09:00 09/20/23 09:35 Doxazosin Mesylate 1 Mg Tablet PO 2 mg DAILY SHOBHA Administration Hydroxyzine Pamoate 50 mg 09/19/23 22:15 09/19/23 23:11 Hydroxyzine Pamoate 25 Mg Capsule PO 50 mg HS SHOBHA Administration Sodium Chloride 1,000 mls @ 1,000 mls/hr 09/19/23 18:08 09/19/23 19:57 0.9 % Sodium Chloride 1000 Ml IV 09/19/23 19:07 Infused .Q1H ONE Infusion Lisinopril 10 mg 09/20/23 09:00 09/20/23 09:31 Lisinopril 10 Mg Tablet PO 10 mg DAILY SHOBHA Administration Metoprolol Succinate 25 mg 09/20/23 09:00 09/20/23 09:30 Metoprolol Succinate (Xl) 25 Mg Tab PO 25 mg DAILY SHOBHA Administration Senna/Docusate Sodium 2 tab 09/19/23 22:15 09/19/23 23:12 Sennosides/Docusate Tablet PO 2 tab HS SHOBHA Administration Sodium Chloride 5 ml 09/20/23 09:00 09/20/23 09:36 Sodium Chloride 0.9 % (Flush) 10 Ml Syringe IVF 5 ml BID SHOBHA Administration Sotalol HCl 120 mg 09/19/23 22:15 09/20/23 09:34 Sotalol Hcl 120 Mg Tablet PO 120 mg BID SHOBHA Administration Medical Decision Making MDM Narrative Medical decision making narrative: Will be monitoring for arrhythmia. Uncertain if this is a defibrillator. Perhaps this also fired. May have been a myocardial infarction. Check labs. Review of record shows that in early April 2020 to [facility] V-tach arrest and was defibrillated. Transferred to [place]. Had a pacemaker placed. Seen for a ventricular tachycardia then at this facility the following week and defibrillated again and initiated on sotalol. Initiating IV fluids. nurse monitoring. Confirmed that pacer does have defibrillator function as well -- ICD Mildly suppressed oxygen levels at rest. Did order one-view portable chest x-ray. Reviewed by me looks to show some mild cardiomegaly and postoperative changes otherwise. Radiology over-read below Study:?XRay Chest 1V PORTABLE-09/19/2023 7:35:14 PM Ordering Physician:RITO Final Report: INDICATION: Chest pain. TECHNIQUE: Chest 1 views. COMPARISON: None. FINDINGS: Cardiovascular and mediastinum: Heart size and vasculature are normal in caliber and appearance. Left chest wall pacemaker device. Lungs and pleural spaces: Low lung volumes. No sign of infiltrate or mass. No sign of pleural effusion. No pneumothorax. Bones and soft tissues: No significant findings. IMPRESSION: Low lung volumes. No acute or significant findings. Continued to have small PVCs intermittently in an atrial paced rhythm. Repeat troponins are normal. Mr. Porras reports feeling quite well. He is hungry. No further episodes of tachycardia I have discussed this case also with [facility] on-call road oiler. They are recommending query of ICD and follow-up with electrophysiology. I am unable to query this ICD and facility appears to be unfamiliar with this. Contemplating discharge and discussed with arts and humanities council director at facility. Understandable concerns about what really has transpired. If had extended run of ventricular tachycardia would have expected defibrillator to fire. It appears there was a run on [employer] monitor per later obtained records in later 2022. No evidence of discharge of defibrillator. There is no evidence of that here today on rhythm strips or labs. Understandably with further concerns expressed by arts and humanities council director, discussed with hospitalist potential benefit of observation. Challenge still would be querying the ICD. Will be admitted for observation Lab Data Lab results reviewed: Yes I reviewed the patient's lab results Labs: Lab Results 09/19/23 09/19/23 Range/Units 18:10 19:37 WBC 12.33 H (4.50-11.00) K/uL RBC 4.83 (4.30-5.90) m/uL Hgb 13.7 (13.5-17.5) gm/dL Hct 43.6 (37.0-53.0) % MCV 90 (80-100) fL MCH 28 (26-34) pg MCHC 31 L (32-36) gm/dL RDW Coeff of [place] 14.6 (11.5-15.5) % Plt Count 208 (140-440) K/uL Neut % (Auto) 69.1 (42.0-72.0) % Lymph % (Auto) 19.5 L (20-44) % [place] % (Auto) 8.8 (0.0-11.0) % Eos % (Auto) 2.2 (0.0-7.0) % Baso % (Auto) 0.2 (0.0-3.0) % Neut # (Auto) 8.50 H (1.7-7.0) K/uL Lymph # (Auto) 2.40 (0.90-2.90) K/uL [place] # (Auto) 1.10 H (0.00-0.90) K/UL Eos # (Auto) 0.30 (0.00-0.50) K/uL Baso # (Auto) 0.00 (0.00-0.30) K/uL Abs Immat Gran (auto) 0.00 (0.00-0.30) K/uL Imm/Tot Granulo (auto) 0.2 % Sodium 143 (135-149) mmol/L Potassium 5.1 (3.6-5.1) mmol/L Chloride 112 (96-114) mmol/L Carbon Dioxide 23 (20-32) mmol/L Anion Gap 8 (7-15) mEq/L BUN 39 H (7-30) mg/dL Creatinine 1.5 (0.5-1.5) mg/dL Estimated GFR 49 ml/min Glucose 124 H (60-115) mg/dL Lactate 2.2 H (0.5-1.9) mmol/L Calcium 9.3 (8.4-10.6) mg/dL Magnesium 2.4 (1.5-2.6) mg/dL Total Bilirubin 0.7 (0.1-1.5) mg/dL Direct Bilirubin 0.4 (0.0-0.5) mg/dL AST 28 (12-35) U/L ALT 12 (4-50) U/L Alkaline Phosphatase 59 (40-150) U/L Troponin I 0.01 (0.01-0.04) ng/mL C-Reactive Protein < 0.5 L (0.5-1.0) mg/dL NT-Pro-B Natriuret Pep 2160 pg/mL Total Protein 8.6 H (6.0-8.3) g/dL Albumin 4.6 (3.3-5.0) g/dL Lipase 243 (23-300) U/L Ethyl Alcohol < 0.01 L (0.01-0.03) % SARS-CoV-2 (PCR) Negative SARS-CoV-2 (Negative) Influenza Type A (PCR) Negative PCR FLU A (Negative) Influenza Type B (PCR) Negative PCR FLU B (Negative) POC Troponin I 0.00 L 0.01 (0.01-0.04) ng/ml ECG Data Attestation: I personally reviewed and interpreted this ECG as follows: (Paced rhythm, atrial. 2 breakthrough ventricular spikes/PVCs. Rate of 70) Discharge Plan Discharge Clinical Impression: Ventricular tachycardia Patient Disposition: Admitted As Observation Condition: Stable Activity Level: Activity as Tolerated Discharge Diet: Regular
[2023-09-19 18:23] LABS: Lactate* 2.2 mmol/L (0.5-1.9)
[2023-09-19 18:24] LABS: Basophils Percent Auto 0.2 % (0.0-3.0); Eosinophils Percent Auto 2.2 % (0.0-7.0); Hematocrit 43.6 % (37.0-53.0); Hemoglobin* 13.7 gm/dL (13.5-17.5); Immature Granulocytes Pct Auto 0.2 %; Lymphocytes Percent Auto 19.5 % (20-44); Mean Corpuscular HGB Conc 31 gm/dL (32-36); Mean Corpuscular Hemoglobin 28 pg (26-34); Mean Corpuscular Volume 90 fL (80-100); Monocytes Percent Auto 8.8 % (0.0-11.0); Neutrophils Percent Auto 69.1 % (42.0-72.0); Platelet Count* 208 K/uL (140-440); RDW Coefficient of Variation % 14.6 % (11.5-15.5); Red Blood Count 4.83 m/uL (4.30-5.90); White Blood Count* 12.33 K/uL (4.50-11.00)
[2023-09-19 18:30] LABS: Slide Review Reflex No
[2023-09-19 18:39] LABS: Albumin* 4.6 g/dL (3.3-5.0); Chloride* 112 mmol/L (96-114)
[2023-09-19 18:40] LABS: Sodium* 143 mmol/L (135-149)
[2023-09-19 18:42] LABS: Alkaline Phosphatase* 59 U/L (40-150); Anion Gap 8 mEq/L (7-15); Aspartate Amino Transferase* 28 U/L (12-35); Bilirubin Direct* 0.4 mg/dL (0.0-0.5); Bilirubin Total* 0.7 mg/dL (0.1-1.5); Carbon Dioxide* 23 mmol/L (20-32); Creatinine* 1.5 mg/dL (0.5-1.5); Estimated Glomerular Filt Rate 49 ml/min; Total Protein* 8.6 g/dL (6.0-8.3)
[2023-09-19 18:43] LABS: Alanine Aminotransferase* 12 U/L (4-50); Blood Urea Nitrogen* 39 mg/dL (7-30); Calcium* 9.3 mg/dL (8.4-10.6); Glucose* 124 mg/dL (60-115); Lipase* 243 U/L (23-300); Magnesium* 2.4 mg/dL (1.5-2.6)
[2023-09-19 18:54] LABS: Troponin I* 0.01 ng/mL (0.01-0.04)
[2023-09-19] MEDS: 0.9 % SODIUM CHLORIDE 1000 ml 1,000 ML IV (19:02)
[2023-09-19 19:03] LABS: PCR FLU A Negative PCR FLU A (Negative); PCR FLU B Negative PCR FLU B (Negative); SARS PCR* Negative SARS-CoV-2 (Negative)
[2023-09-19 19:04] LABS: C Reactive Protein* < 0.5 mg/dL (0.5-1.0); Ethanol* < 0.01 % (0.01-0.03); NT Pro B Type NatriureticPept* 2160 pg/mL
--- NOTE | 2023-09-19 19:17 | XR_ITS ---
Patient: SAMUEL REEDER Facility:?[facility] Patient ID:?[id number] Site Patient ID:?[id number]. Site :?[id number] Study:?XRay-Chest 1V PORTABLE-09/19/2023 7:35:14 PM Ordering Physician:RITO Final Report: INDICATION: Chest pain. TECHNIQUE: Chest 1 views. COMPARISON: None. FINDINGS: Cardiovascular and mediastinum: Heart size and vasculature are normal in caliber and appearance. Left chest wall pacemaker device. Lungs and pleural spaces: Low lung volumes. No sign of infiltrate or mass. No sign of pleural effusion. No pneumothorax. Bones and soft tissues: No significant findings. IMPRESSION: Low lung volumes. No acute or significant findings. Dictated by Wan Almeida MD @ 09/19/2023 7:38:23 PM Signed by:?Wan Almeida MD @09/19/2023 7:38:23 PM (Electronic Signature)
[2023-09-19 19:34] LABS: Potassium* 5.1 mmol/L (3.6-5.1)
[2023-09-19 20:20] LABS: Troponin, Point-of-Care* 0.01 ng/ml (0.01-0.04)
--- NOTE | 2023-09-19 22:14 | PM.IMHP1 ---
Hospitalist- H&P: NEETU History of Present Illness Date Seen: 09/20/23 Chief complaint: Chest pain Narrative: Gilmar Porras is a 73 year old male admitted to the hospital with an episode of nausea diaphoresis lightheadedness and wide complex tachycardia that occurred right after he started eating this evening. He reports he had taken 2 bites of food and then had abrupt onset of fairly severe symptoms. Staff at [facility] where he lives called 911. The paramedics found him to be in a wide complex regular tachycardia. This was suspected to be ventricular tachycardia as he had had previous episodes of that with similar symptoms. In April of 2022 he had a ventricular tachycardia event treated with cardioversion. He was transferred [facility] where he had a dual chamber pacemaker defibrillator implanted. One week later he had another episode of ventricular tachycardia. They started him on sotalol 120 mg b.i.d. and reprogrammed his defibrillator. He has been doing well with this up until tonight. Cardiology notes from 08/02/2022: Gilmar Porras?is a delightful 72-year-old man with hypertension, hyperlipidemia, stage III chronic kidney disease, paroxysmal atrial fibrillation with previous Maze procedure and left atrial appendage ligation and his preference is to not be on anticoagulation, remote previous history of a hemorrhagic cerebrovascular accident and was admitted to the hospital early April 2022 with ventricular tachycardia. ?Extensive work-up including cardiac MRI and PET FDG demonstrated patchy myocardial scarring consistent with either myocarditis or previous sarcoidosis. ?He had implantation of a secondary prevention dual-chamber Medtronic ICD system and was not eventually placed on sotalol for arrhythmia suppression. ?Of note he has had intermittent palpitations and his recent ICD checks have demonstrated arrhythmias lasting up to 9 hours. ?He is referred to discuss the same. ?He denies any dyspnea with exertion. ?He denies any chest pain. ?He denies any orthopnea. ?He denies any paroxysmal nocturnal dyspnea. ?He reports compliance with all his medical therapy including the sotalol. CONSULTATION ASSESSMENT AND PLAN: 1. ?Sustained monomorphic ventricular tachycardia: ? The documented ventricular tachycardia has a left bundle branch morphology inferior axis with precordial QRS transition in V4 . ?The QRS morphology is reasonably narrow and possibly consistent with early activation in the His-Purkinje system. ?I suspect the exit site is in the septal aspect of the of the right ventricular inflow. ? Given that he continues to have recurrent arrhythmias despite treatment with sotalol 120 mg twice daily, we discussed treatment options including escalation of antiarrhythmic therapy as well as EP study and ablation. ?We discussed in detail the EP study, mapping ablation as well as the attendant risks and potential complications including but not limited to , phrenic nerve injury stroke, heart block requiring permanent pacing,?ICD lead dislodgment,?tamponade, bleeding and need for emergent open heart or vascular surgery as well as expected outcomes. After extensive discussion of the risks, benefits and alternatives, the patient wanted to continue to monitor his symptoms and did not want to proceed withEP study and catheter ablation for ventricular tachycardia. He is willing to re-discuss if things change. For now we will continue to sotalol and metoprolol at current doses ? #2. ?Nonischemic cardiomyopathy with preserved LV systolic function: ? 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 ? The ventricular tachycardia that has been documented does not appear to be coming from the LV apical aneurysm. ? Continue aggressive neurohormonal inhibition with lisinopril and metoprolol succinate. ???He?has?no heart failure symptoms. ? #3. ?Remote previous history of atrial fibrillation: ? The patient had a left atrial Maze procedure and left atrial appendage ligation. ? His preference has been to stay off anticoagulants. ? We have not documented any recurrent arrhythmias through his device. ? 4. ?Secondary prevention dual-chamber Medtronic ICD in place: ? His device functions appropriately. ? Continue to follow up with the device clinic. ? 5. Stage IIIa Chronic kidney disease: - Tolerating current dose of sotalol without significant QT interval prolongation. Will follow up with nephrology. Review of Systems Narrative: Patient reports generally doing well except he notes that he has had a poor appetite for a couple weeks. Thinks he may have lost up to 10 lb over the last couple weeks. He has not had vomiting except 1 episode tonight. Not having diarrhea or abdominal pain. He does not have postprandial pain. He reports primarily a poor appetite. No other medication changes. Bowel function has been normal except for chronic constipation. No blood in his stool. [facility] Medical History (Updated 09/20/23 @ 11:57 by Joann Jacob PA-C) Heart failure with preserved ejection fraction ?I50.30 - Unspecified diastolic (congestive) heart failure (ICD-10) Hyperlipidemia ?E78.5 - Hyperlipidemia, unspecified (ICD-10) Chronic kidney disease, stage 3 ?N18.30 - Chronic kidney disease, stage 3 unspecified (ICD-10) Hypertension ?I10 - Essential (primary) hypertension (ICD-10) Edentulous ?K08.109 - Complete loss of teeth, unspecified cause, unspecified class (ICD-10) Atrial fibrillation ?I48.91 - Unspecified atrial fibrillation (ICD-10) Hemorrhagic stroke ?I61.9 - Nontraumatic intracerebral hemorrhage, unspecified (ICD-10) POLST (Physician Orders for Life-Sustaining Treatment) ?Z78.9 - Other specified health status (ICD-10) Surgical History (Updated 09/19/23 @ 22:27 by Adrien Stiles MD) H/O colonoscopy ?Z98.890 - Other specified postprocedural states (ICD-10) History of mitral valve repair ?Z98.890 - Other specified postprocedural states (ICD-10) H/O maze procedure ?Z98.890 - Other specified postprocedural states (ICD-10) Family History (Updated 09/19/23 @ 22:27 by Adrien Stiles MD) Mother Cardiovascular disease Father Cardiovascular disease Brother High blood pressure Social History (Updated 09/19/23 @ 22:30 by Adrien Stiles MD) Narrative: Patient lives at [facility]. He does not smoke. He does not drink alcohol. His primary contact is his sister, Shanika Porras, of [place]. [phone]. Code status is DNR and DNI. This includes a request for no external electrical shock with V-tach if his implanted defibrillator does not resolve his tachy dysrhythmia. What is your current living situation?: I presently have a place to live Problems where you live: no known problems Problems where you live details: na In the past 12 months, utilities in danger of being shut off: no In past 12 months, lack of transportation kept you from medical appts, meetings, work, or getting things needed for daily living: no In the past 12 mos, have been you worried that your food would run out before you had money to buy more?: never true In the past 12 mos, the food you bought just didn't last and you didn't have money to buy more?: never true Highest level of school completed/degree received: 12th grade, no diploma Smoking Status: Smoker, status unknown Do you use any of these nicotine containing products: Vaping Products How often do you have a drink containing alcohol: never AUDIT-C Alcohol total score: 0 Non-prescribed substance use: denies use Caffeine: Yes (occasional soda) How often does anyone, including family, friends and others, physically hurt you: never How often does anyone, including family, friends and others, insult or talk down to you: never How often does anyone, including family, friends and others, threaten you with harm: never How often does anyone, including family, friends and others, scream or curse at you: never service: Yes Meds Home Medications and Allergies Home Medications Medication Instructions Recorded Confirmed Type amlodipine 10 mg tablet 10 mg PO DAILY 04/05/22 09/19/23 History aspirin 81 mg tablet,delayed 81 mg PO DAILY 04/05/22 09/20/23 History release ibuprofen 200 mg capsule 200 mg PO Q4-6H PRN 04/05/22 09/20/23 History lisinopril 10 mg tablet 10 mg PO DAILY 04/05/22 09/19/23 History metoprolol succinate 25 mg 25 mg PO DAILY 04/05/22 09/19/23 History tablet,extended release 24 hr quetiapine 25 mg tablet 25 mg PO DAILY 04/05/22 04/05/22 History atorvastatin 10 mg tablet 10 mg PO DAILY 09/19/23 09/19/23 History doxazosin 2 mg tablet 2 mg PO DAILY 09/19/23 09/19/23 History hydroxyzine HCl 50 mg tablet 50 mg PO QPM 09/19/23 09/19/23 History sennosides 8.6 mg-docusate sodium PO 09/19/23 History 50 mg tablet (Stimulant Laxative Plus) Allergies Allergy/AdvReac Type Severity Reaction Status Date / Time No Known Drug Allergies Allergy Verified 04/05/22 14:36 Exam Narrative: Exam Narrative: He is alert pleasant and in no distress. He gives his own history. Eyes normal. Oropharynx edentulous. Neck is supple without mass or adenopathy. Respirations are clear to auscultation. No wheezing rales or rhonchi. Cardiovascular: S1, S2, regular rate and rhythm. No murmur gallop or rub. Distant heart sounds. Abdomen: Bowel sounds active. Abdomen is soft without tenderness or mass. External genitalia normal. Extremities normal. He has intact pulses. No edema. He moves all 4 extremities well. No rash. Const: Vital Signs, click to edit/add: Vital Signs - 24 hr 09/19/23 18:06 09/19/23 18:07 09/19/23 18:16 Temperature 98.0 F Pulse Rate 60 Pulse Rate [Pulse Oximeter] 67 Respiratory Rate 16 Blood Pressure 110/64 Blood Pressure [Le ft Upper Arm] 110/64 Pulse Oximetry 95 94 [facility] 09/19/23 18:36 09/19/23 18:45 09/19/23 19:05 Temperature Pulse Rate 60 60 60 Pulse Rate [Pulse Oximeter] Respiratory Rate Blood Pressure Blood Pressure [Le ft Upper Arm] Pulse Oximetry 96 92 93 Oxygen Delivery Pa thod 09/19/23 19:15 09/19/23 19:30 09/19/23 19:34 Temperature Pulse Rate 69 59 L 60 Pulse Rate [Pulse Oximeter] Respiratory Rate Blood Pressure Blood Pressure [Le ft Upper Arm] Pulse Oximetry 94 92 94 Oxygen Delivery Pa thod 09/19/23 19:45 09/19/23 20:00 09/19/23 20:15 Temperature Pulse Rate 63 49 L 60 Pulse Rate [Pulse Oximeter] Respiratory Rate Blood Pressure Blood Pressure [Le ft Upper Arm] Pulse Oximetry 94 94 94 Oxygen Delivery Pa thod 09/19/23 20:30 09/19/23 20:34 09/19/23 20:45 Temperature Pulse Rate 71 62 60 Pulse Rate [Pulse Oximeter] Respiratory Rate Blood Pressure Blood Pressure [Le ft Upper Arm] Pulse Oximetry 95 94 94 Oxygen Delivery Pa thod 09/19/23 21:00 09/19/23 21:04 09/19/23 21:15 Temperature Pulse Rate 63 64 71 Pulse Rate [Pulse Oximeter] Respiratory Rate Blood Pressure Blood Pressure [Le ft Upper Arm] Pulse Oximetry 94 94 95 Oxygen Delivery Pa thod 09/19/23 21:30 09/19/23 21:34 09/19/23 21:45 Temperature Pulse Rate 68 69 66 Pulse Rate [Pulse Oximeter] Respiratory Rate Blood Pressure Blood Pressure [Le ft Upper Arm] Pulse Oximetry 94 95 90 Oxygen Delivery Me thod Documenting provider has reviewed patient's vital signs: yes Hospitalist - H&P: Result Labs Labs: Short CBC 09/19/23 Range/Units 18:10 WBC 12.33 H (4.50-11.00) K/uL Hgb 13.7 (13.5-17.5) gm/dL Hct 43.6 (37.0-53.0) % Plt Count 208 (140-440) K/uL BMP 09/19/23 18:10 Sodium 143 Potassium 5.1 Chloride 112 Carbon Dioxide 23 BUN 39 H Creatinine 1.5 Glucose 124 H Calcium 9.3 Cardiac Enzymes 09/19/23 Range/Units 18:10 Troponin I 0.01 (0.01-0.04) ng/mL Liver Function 09/19/23 Range/Units 18:10 Total Bilirubin 0.7 (0.1-1.5) mg/dL Direct Bilirubin 0.4 (0.0-0.5) mg/dL AST 28 (12-35) U/L ALT 12 (4-50) U/L Alkaline Phosphatase 59 (40-150) U/L Albumin 4.6 (3.3-5.0) g/dL Assessment and Plan Assessment and plan (1) Ventricular tachycardia: Problem comment: This was likely the cause of his episode of severe diaphoresis, nausea and lightheadedness. EKG showed wide complexes on EMS strip. Completely resolved with return to normal sinus rhythm. Unable to return to [facility] overnight as staff concerned he would be alone. Telemetry overnight unremarkable. Recommend outpatient follow-up with electrophysiology at [facility]. Managed with implantable cardio defibrillator, sotalol. Status: Acute (2) Poor appetite: Problem comment: Patient reports poor appetite with recent weight loss in the past couple weeks. Outpatient follow-up for this as this appears to be somewhat specific to certain types of foods and his exam and evaluation during hospital course are reassuring Status: Acute (3) POLST (Physician Orders for Life-Sustaining Treatment): Problem comment: DNR DNI. Patient specifically reports not wanting external cardioversion defibrillation if his defibrillator pacemaker fails to resolve his tachy dysrhythmia. Status: Acute Plan 73-year-old male admitted the hospital for evaluation monitoring of symptomatic ventricular tachycardia. Anticipate discharge back to assisted living with outpatient follow-up with electrophysiology if he has an uneventful night. Total Time Spent Total Time Spent: Total time spent is 80 minutes, 50 minutes in coordination of care and discussing with patient other providers ongoing evaluation management of symptomatic ventricular tachycardia
[2023-09-19] MEDS: hydrOXYzine pamoate 25 MG CAPSULE 50 MG PO (23:11)
[2023-09-19] MEDS: SENNOSIDES/DOCUSATE TABLET 2 TAB PO (23:12)
[2023-09-19] MEDS: SOTALOL HCL 120 MG TABLET PO (23:13)
[2023-09-20 03:00] VITALS: BP 114/64; PULSE 80; RESP 15; TEMP 36.7; O2SAT 97
--- NOTE | 2023-09-20 06:22 | PC.NURSE ---
End of [id number]: Patient admitted to unit at 2155, per report [place] had an acute onset episode of diaphoresis with nausea and vomiting. Had abnormal EKG with EMS, patient rhythm returned to baseline after several minutes. Upon arrival to unit patient denies any nausea, lightheadedness, dizziness and diaphoresis. Alert and oriented x 4. Ambulates independently. Reports vision is blurred and he has deficits due to prior strokes, unable to sign paperwork but gave RN permision to sign for patient. Lung sounds clear, diminished in bases. Abdomen soft, non tender, last bm 09/18/2023. Denied any further diaphoretic episodes or nausea this shift.
[2023-09-20 07:40] VITALS: BP 108/84; PULSE 62; RESP 16; TEMP 36.2; O2SAT 99
[2023-09-20 07:42] VITALS: PULSE 61
[2023-09-20] MEDS: METOPROLOL SUCCINATE (XL) 25 MG TAB PO (09:30)
[2023-09-20] MEDS: AMLODIPINE 10 MG TABLET PO (09:31)
[2023-09-20] MEDS: lisinopriL 10 MG TABLET PO (09:31)
[2023-09-20] MEDS: ASPIRIN 81 MG TABLET EC PO (09:31)
[2023-09-20] MEDS: ATORVASTATIN 10 MG TABLET PO (09:32)
[2023-09-20] MEDS: SOTALOL HCL 120 MG TABLET PO (09:34)
[2023-09-20] MEDS: DOXAZOSIN MESYLATE 1 MG TABLET 2 MG PO (09:35)
[2023-09-20] MEDS: SODIUM CHLORIDE 0.9 % (FLUSH) 10 ML SYRINGE 5 ML IVF (09:36)
[2023-09-20 11:00] VITALS: BP 107/84; PULSE 78; RESP 16; TEMP 36.6; O2SAT 99
--- NOTE | 2023-09-20 11:52 | P.DS_ITS ---
DS: Providers Provider Date Seen: 09/20/23 Date of admission: 09/19/23 21:52 Primary care physician: Bam Robles MD Admitting Clinician: Puja Pendleton MD Attending Physician on discharge: Joann Jacob, [facility], PAHerminioC [facility] Date of Discharge: 09/20/23 DS: Diagnosis Discharge Diagnosis (1) Ventricular tachycardia: Status: Acute Problem details: This was likely the cause of his episode of severe diaphoresis, nausea and lightheadedness. EKG showed wide complexes on EMS strip. Completely resolved with return to normal sinus rhythm. Unable to return to [place] overnight as staff concerned he would be alone. Telemetry overnight unremarkable. Recommend outpatient follow-up with electrophysiology at [facility]. Managed with implantable cardio defibrillator, sotalol. (2) Poor appetite: Status: Acute Problem details: Patient reports poor appetite with recent weight loss in the past couple weeks. Outpatient follow-up for this as this appears to be somewhat specific to certain types of foods and his exam and evaluation during hospital course are reassuring (3) POLST (Physician Orders for Life-Sustaining Treatment): Status: Acute Problem details: DNR DNI. Patient specifically reports not wanting external cardioversion defibrillation if his defibrillator pacemaker fails to resolve his tachy dysrhythmia. DS: Summary Hospital Course Hospital Course: [age] year old male past medical history significant for hypertension, hyperlipidemia, stage III CKD, remote history of paroxysmal atrial fibrillation, previous hemorrhagic CVA, monomorphic ventricular tachycardia was admitted to the medical floor for observation overnight following episode of wide complex ventricular tachycardia. Course of care and details as noted above. Monitored. Telemetry overnight unremarkable. Discharged back to [place] the following morning with close outpatient follow-up with PCP and electrophysiology outpatient visit at [facility]. Remainder of chronic medical comorbidities were monitored and managed with home medications. Status at Discharge Overall status at discharge: patient is back to baseline Time Spent with Patient Time attestation: Total time spent providing and/or coordinating discharge services: Time spent: Greater than 30 minutes Exam Narrative: Exam Narrative: PHYSICAL EXAM General: Pleasant, conversant, NAD Cardiovascular: RRR Pulmonary: No dyspnea Neurological: Alert, answering questions appropriately Skin: Warm, dry. Const: Vital Signs, click to edit/add: Vital Signs - 24 hr 09/19/23 18:06 09/19/23 18:07 09/19/23 18:16 Temperature 98.0 F Pulse Rate 60 Pulse Rate [Pulse Oximeter] 67 Pulse Rate [Right Pulse Oximeter] Respiratory Rate 16 Blood Pressure 110/64 Blood Pressure [Le ft Upper Arm] 110/64 Blood Pressure [Ri ght Arm] Pulse Oximetry 95 94 [facility] 09/19/23 18:36 09/19/23 18:45 09/19/23 19:05 Temperature Pulse Rate 60 60 60 Pulse Rate [Pulse Oximeter] Pulse Rate [Right Pulse Oximeter] Respiratory Rate Blood Pressure Blood Pressure [Le ft Upper Arm] Blood Pressure [Ri ght Arm] Pulse Oximetry 96 92 93 [facility] 09/19/23 19:15 09/19/23 19:30 09/19/23 19:34 Temperature Pulse Rate 69 59 L 60 Pulse Rate [Pulse Oximeter] Pulse Rate [Right Pulse Oximeter] Respiratory Rate Blood Pressure Blood Pressure [Le ft Upper Arm] Blood Pressure [Ri ght Arm] Pulse Oximetry 94 92 94 [facility] 09/19/23 19:45 09/19/23 20:00 09/19/23 20:15 Temperature Pulse Rate 63 49 L 60 Pulse Rate [Pulse Oximeter] Pulse Rate [Right Pulse Oximeter] Respiratory Rate Blood Pressure Blood Pressure [Le ft Upper Arm] Blood Pressure [Ri ght Arm] Pulse Oximetry 94 94 94 [facility] 09/19/23 20:30 09/19/23 20:34 09/19/23 20:45 Temperature Pulse Rate 71 62 60 Pulse Rate [Pulse Oximeter] Pulse Rate [Right Pulse Oximeter] Respiratory Rate Blood Pressure Blood Pressure [Le ft Upper Arm] Blood Pressure [Ri ght Arm] Pulse Oximetry 95 94 94 [facility] 09/19/23 21:00 09/19/23 21:04 09/19/23 21:15 Temperature Pulse Rate 63 64 71 Pulse Rate [Pulse Oximeter] Pulse Rate [Right Pulse Oximeter] Respiratory Rate Blood Pressure Blood Pressure [Le ft Upper Arm] Blood Pressure [Ri ght Arm] Pulse Oximetry 94 94 95 [facility] 09/19/23 21:30 09/19/23 21:34 09/19/23 21:45 Temperature Pulse Rate 68 69 66 Pulse Rate [Pulse Oximeter] Pulse Rate [Right Pulse Oximeter] Respiratory Rate Blood Pressure Blood Pressure [Le ft Upper Arm] Blood Pressure [Ri ght Arm] Pulse Oximetry 94 95 90 Oxygen Delivery Me thod 09/19/23 21:55 09/19/23 21:55 09/19/23 23:00 Temperature 98.1 F Pulse Rate 61 Pulse Rate [Pulse Oximeter] Pulse Rate [Right Pulse Oximeter] 70 Respiratory Rate 20 20 Blood Pressure Blood Pressure [Le ft Upper Arm] Blood Pressure [Ri ght Arm] 116/62 Pulse Oximetry 89 89 Oxygen Delivery Me thod Room Air Room Air 09/19/23 23:00 09/19/23 23:00 09/20/23 03:00 Temperature 98.1 F 98.1 F Pulse Rate Pulse Rate [Pulse Oximeter] Pulse Rate [Right Pulse Oximeter] 70 70 80 Respiratory Rate 20 20 15 Blood Pressure Blood Pressure [Le ft Upper Arm] Blood Pressure [Ri ght Arm] 116/62 114/64 Pulse Oximetry 89 97 Oxygen Delivery Dc thod Room Air Room Air 09/20/23 07:40 09/20/23 07:40 09/20/23 07:42 Temperature 97.2 F L Pulse Rate 61 Pulse Rate [Pulse Oximeter] Pulse Rate [Right Pulse Oximeter] 62 62 Respiratory Rate 16 16 Blood Pressure Blood Pressure [Le ft Upper Arm] Blood Pressure [Ri ght Arm] 108/84 Pulse Oximetry 99 Oxygen Delivery Me thod Room Air DS: Data Data Completed and Pending Labs on day of discharge: Labs from last 24 hours 09/19/23 09/19/23 09/19/23 22:07 19:37 18:10 WBC 12.33 H RBC 4.83 Hgb 13.7 Hct 43.6 MCV 90 MCH 28 MCHC 31 L RDW Coeff of [place] 14.6 Plt Count 208 Neut % (Auto) 69.1 Lymph % (Auto) 19.5 L [place] % (Auto) 8.8 Eos % (Auto) 2.2 Baso % (Auto) 0.2 Neut # (Auto) 8.50 H Lymph # (Auto) 2.40 [place] # (Auto) 1.10 H Eos # (Auto) 0.30 Baso # (Auto) 0.00 Abs Immat Gran (auto) 0.00 Imm/Tot Granulo (auto) 0.2 Sodium 143 Potassium 5.1 Chloride 112 Carbon Dioxide 23 Anion Gap 8 BUN 39 H Creatinine 1.5 Estimated GFR 49 Glucose 124 H Lactate 2.2 H Calcium 9.3 Magnesium 2.4 Total Bilirubin 0.7 Direct Bilirubin 0.4 AST 28 ALT 12 Alkaline Phosphatase 59 Troponin I 0.01 C-Reactive Protein < 0.5 L NT-Pro-B Natriuret Pep 2160 Total Protein 8.6 H Albumin 4.6 Lipase 243 Ethyl Alcohol < 0.01 L SARS-CoV-2 (PCR) Negative SARS-CoV-2 Influenza Type A (PCR) Negative PCR FLU A Influenza Type B (PCR) Negative PCR FLU B Lab Acknowledgement Test Added POC Troponin I 0.01 0.00 L Discharge Plan Discharge Disposition: Home, Self-Care Date of Admission: 09/19/23 21:52 Attending Provider on Discharge: Joann Jacob Primary Care Provider: Bam Robles Condition: Stable Anticipated Discharge Date/Time: 09/20/23 11:45 Discharge Medications: Continued sotalol 120 mg tablet 120 mg PO BID Qty: 60 2RF Rx Instructions: this is for Ventricular tachycardia quetiapine 25 mg tablet 25 mg PO DAILY aspirin 81 mg tablet,delayed release (DR/EC) 81 mg PO DAILY amlodipine 10 mg tablet 10 mg PO DAILY lisinopril 10 mg tablet 10 mg PO DAILY metoprolol succinate 25 mg tablet extended release 24 hr 25 mg PO DAILY ibuprofen 200 mg capsule 200 mg PO Q4-6H PRN Rx Instructions: 200mg 1-2 tabs orally every 4-6 hours PRN; atorvastatin 10 mg tablet 10 mg PO DAILY doxazosin 2 mg tablet 2 mg PO DAILY sennosides-docusate sodium [Stimulant Laxative Plus] 8.6-50 mg tablet PO hydroxyzine HCl 50 mg tablet 50 mg PO QPM Discharge Orders: Discharge Order (Routine); Ordered 09/20/23 Ordered By: Joann Jacob Patient Education: Acute Nausea and Vomiting (GEN) Additional Instructions: You will outpatient follow up with electrophysiology at [facility] [place]. Your PCP can help to schedule this. Activity Level: Activity as Tolerated Discharge Diet: Regular Follow Up Appointments: Bam Robles MD [Primary Care Provider] - 09/27/23 (Post hospital follow up 5-7 days, poor appetite, weight loss, VT. Will need outpatient follow up with electrophysiology at [facility]) Forms: [employer] Info Instructions
--- NOTE | 2023-09-20 13:44 | PC.NURSE ---
Patient discharged to previous residence ([facility]) per transportation from [facility]. Patient vitally stable at discharge. IV removed prior to DC. Discharge packet given to [employer] intermediary. Patient sent home with all belongings. Patient transported via wheelchair at [place]. Patient stable at DC from facility.
== END 2023-09-20 13:35 | disposition home or self-care (01) ==
LOC: ED 21:32 → MEDSURG 21:54
PROVIDERS: Family Medicine; Admitting Provider Family Medicine; Emergency Provider Family Medicine; PCP Surgery; Visit Provider Family Medicine
DX: I47.20 Ventricular tachycardia, unspecified (principal); I42.9 Cardiomyopathy, unspecified; Z95.810 Presence of automatic (implantable) cardiac defibrillator; Z51.5 Encounter for palliative care; R61 Generalized hyperhidrosis; I48.91 Unspecified atrial fibrillation; I51.7 Cardiomegaly; R63.0 Anorexia; R63.4 Abnormal weight loss; Z68.25 Body mass index [BMI] 25.0-25.9, adult; R11.0 Nausea; I12.9 Hypertensive chronic kidney disease with stage 1 through stage 4 chronic kidney disease, or unspecified chronic kidney disease; R42 Dizziness and giddiness; N18.31 Chronic kidney disease, stage 3a; E78.5 Hyperlipidemia, unspecified; K59.00 Constipation, unspecified; J34.89 Other specified disorders of nose and nasal sinuses; L90.5 Scar conditions and fibrosis of skin; F17.290 Nicotine dependence, other tobacco product, uncomplicated; Z79.82 Long term (current) use of aspirin; K08.109 Complete loss of teeth, unspecified cause, unspecified class; Z86.79 Personal history of other diseases of the circulatory system; Z86.73 Personal history of transient ischemic attack (TIA), and cerebral infarction without residual deficits; Z98.890 Other specified postprocedural states; Z78.9 Other specified health status; Z66 Do not resuscitate
CPT/HCPCS: 36415; 71045; 80048; 80076; 82077; 83605; 83690; 83735; 83880; 84484; 85025; 86140; 87040; 87631; 93005; 94761; 96360; 99284; 99285; G0378; A9270; J7030

== ENCOUNTER 2024-11-11 08:03 | Outpatient (CLI) | payer OTHER, SELFPAY ==
[2024-11-11 09:13] LABS: Albumin* 4.2 g/dL (3.3-5.0); Chloride* 112 mmol/L (96-114); Potassium* 5.4 mmol/L (3.6-5.1); Sodium* 144 mmol/L (135-149)
[2024-11-11 09:16] LABS: Alanine Aminotransferase* 17 U/L (4-50); Alkaline Phosphatase* 78 U/L (40-150); Anion Gap 12 mEq/L (7-15); Aspartate Amino Transferase* 22 U/L (12-35); Bilirubin Total* 0.6 mg/dL (0.1-1.5); Blood Urea Nitrogen* 51 mg/dL (7-30); Calcium* 9.2 mg/dL (8.4-10.6); Carbon Dioxide* 20 mmol/L (20-32); Cholesterol* 141 mg/dL (90-199); Creatinine* 2.2 mg/dL (0.5-1.5); Estimated Glomerular Filt Rate 31 ml/min; Glucose* 96 mg/dL (60-115); HDL Cholesterol* 33 mg/dL (>=40); LDL Cholesterol Calculated 79 mg/dL (<100); Total Protein* 7.2 g/dL (6.0-8.3); Triglycerides* 147 mg/dL (40-149)
[2024-11-11 09:40] LABS: Vitamin D 25 Hydroxy* 46 ng/mL (30-80)
[2024-11-11 09:48] LABS: Basophils Absolute Auto 0.03 K/uL (0.00-0.30); Basophils Percent Auto 0.3 % (0.0-3.0); Hematocrit 41.1 % (37.0-53.0); Immature Granulocytes Abs Auto 0.01 K/uL (0.00-0.30); Immature Granulocytes Pct Auto 0.1 %; Lymphocytes Percent Auto 12.2 % (20-44); Mean Corpuscular HGB Conc 32 gm/dL (32-36); Mean Corpuscular Hemoglobin 29 pg (26-34); Mean Corpuscular Volume 90 fL (80-100); Monocytes Percent Auto 8.2 % (0.0-11.0); Neutrophils Percent Auto 76.2 % (42.0-72.0); Platelet Count* 179 K/uL (140-440); RDW Coefficient of Variation % 15.1 % (11.5-15.5); Red Blood Count 4.56 m/uL (4.30-5.90); White Blood Count* 9.94 K/uL (4.50-11.00)
[2024-11-11 10:03] LABS: Slide Review Reflex No
[2024-11-11 10:24] LABS: Free T4 Free Thyroxine* 0.76 ng/dL (0.70-1.85)
[2024-11-11 10:49] LABS: Hemoglobin A1C* 5.5 % (0-5.6)
== END 2024-11-11 08:04 | disposition home or self-care (01) ==
LOC: NPINS 08:04
PROVIDERS: PCP Surgery; Visit Provider Family Medicine
DX: N18.30 Chronic kidney disease, stage 3 unspecified (principal); I50.9 Heart failure, unspecified; F33.9 Major depressive disorder, recurrent, unspecified; Z86.73 Personal history of transient ischemic attack (TIA), and cerebral infarction without residual deficits; I13.0 Hypertensive heart and chronic kidney disease with heart failure and stage 1 through stage 4 chronic kidney disease, or unspecified chronic kidney disease; E78.5 Hyperlipidemia, unspecified
CPT/HCPCS: 80053; 80061; 82306; 83036; 84439; 84443; 85025